=== PATIENT | male | born 1950 | race African-American/Black ===

== ENCOUNTER 2024-03-11 08:49 | Inpatient (IN) | payer OTHER ==
[2024-03-11 10:07] LABS: BASO % 0.8 % (0-2.0); EOS % 0.9 % (0-4.5); HEMATOCRIT 44.7 % (35.4-49); HEMOGLOBIN 15.2 GM/dL (11.7-16.9); LYMPH % 14.8 % (8-40); MCHC 34.1 g/dl (32.0-35.9); MEAN CELL VOLUME 99.6 fl (80-96); MEAN PLT VOLUME 8.5 fl (7.5-11.1); MONO % 10.5 % (3.8-10.2); PLATELET COUNT 126 10^3/uL (134-434); RBC 4.48 M/mm3 (4.00-5.60); RDW 14.6 % (11.9-15.9); WHITE BLOOD COUNT 5.6 K/mm3 (4.0-10.0)
[2024-03-11 10:43] LABS: INR 1.02 (0.83-1.09); PROTHROMBIN TIME (PATIENT) 11.7 SEC (9.7-13.0)
[2024-03-11 10:44] LABS: ACTIVATED PTT 33.7 SECONDS (25.2-36.5)
[2024-03-11 10:57] LABS: LACTIC ACID 2.4 mmol/L (0.4-2.0); POTASSIUM 4.5 mmol/L (3.5-5.1)
[2024-03-11 11:00] LABS: ALBUMIN 3.3 g/dl (3.4-5.0); CALCIUM 9.5 mg/dL (8.5-10.1); MAGNESIUM 2.2 mg/dL (1.8-2.4)
[2024-03-11 11:02] LABS: BLOOD UREA NITROGEN 10.2 mg/dL (7-18)
[2024-03-11 11:03] LABS: CREATININE 0.7 mg/dL (0.55-1.3)
[2024-03-11 11:05] LABS: BILIRUBIN,TOTAL 3.5 mg/dL (0.2-1); TOT PROT 7.4 g/dl (6.4-8.2)
[2024-03-11] MEDS: SODIUM CHLORIDE 1,000 ML IV STA (11:40)
[2024-03-11] MEDS ORDERED: LORazepam 1 MG TABLET PO PRN (13:29)
[2024-03-11 14:12] LABS: POTASSIUM 4.2 mmol/L (3.5-5.1)
[2024-03-11 14:13] LABS: CALCIUM 8.6 mg/dL (8.5-10.1)
[2024-03-11 14:14] LABS: ALBUMIN 3.2 g/dl (3.4-5.0); BLOOD UREA NITROGEN 9.8 mg/dL (7-18)
[2024-03-11 14:17] LABS: CREATININE 0.6 mg/dL (0.55-1.3)
[2024-03-11 14:18] LABS: BILIRUBIN,TOTAL 3.4 mg/dL (0.2-1)
[2024-03-11 14:19] LABS: TOT PROT 6.5 g/dl (6.4-8.2)
[2024-03-11 14:25] VITALS: BMI 21.1
[2024-03-11] MEDS ORDERED: ALBUTEROL SO4 0.083% IH SOL 2.5 MG/3 ML VIAL.NEB. NEB PRN (17:13)
[2024-03-11 17:21] LABS: BILIRUBIN,DIRECT 1.1 mg/dL (0.0-0.2)
[2024-03-11] MEDS ORDERED: ALBUTEROL SO4 HFA INHALER IH PRN (17:46)
[2024-03-11] MEDS: KETOROLAC TROMETHAMINE 30 MG/1 ML VIAL IVPUSH ONE (18:51)
[2024-03-11] MEDS: traZODone HCL 100 MG TABLET (FP) PO SCH (21:34)
[2024-03-11] MEDS: BUDESONIDE/FORMETEROL FUMARATE 80/4.5 mcg INHALER IH SCH (21:34)
[2024-03-11] MEDS ORDERED: PATIENT'S OWN MEDICATION (NON-FORMULARY) (Fluticasone Propion/Salmeterol [Advair 250-50 Di IH SCH (22:00)
[2024-03-12 09:02] LABS: BASO % 0.4 % (0-2.0); EOS % 0.2 % (0-4.5); HEMATOCRIT 44.5 % (35.4-49); HEMOGLOBIN 14.9 GM/dL (11.7-16.9); LYMPH % 8.8 % (8-40); MCH 33.7 pg (25.7-33.7); MCHC 33.5 g/dl (32.0-35.9); MEAN CELL VOLUME 100.5 fl (80-96); MEAN PLT VOLUME 8.4 fl (7.5-11.1); MONO % 7.1 % (3.8-10.2); NEUT % 83.5 % (42.8-82.8); PLATELET COUNT 132 10^3/uL (134-434); RBC 4.42 M/mm3 (4.00-5.60); WHITE BLOOD COUNT 7.4 K/mm3 (4.0-10.0)
[2024-03-12 09:09] LABS: INR 1.08 (0.83-1.09); PROTHROMBIN TIME (PATIENT) 12.2 SEC (9.7-13.0)
[2024-03-12 09:39] LABS: POTASSIUM 4.5 mmol/L (3.5-5.1)
[2024-03-12 09:44] LABS: ALBUMIN 3.4 g/dl (3.4-5.0)
[2024-03-12 09:45] LABS: BLOOD UREA NITROGEN 13.5 mg/dL (7-18)
[2024-03-12 09:48] LABS: CREATININE 0.7 mg/dL (0.55-1.3); PHOSPHOROUS 2.7 mg/dL (2.5-4.9)
[2024-03-12 09:49] LABS: TOT PROT 6.9 g/dl (6.4-8.2)
[2024-03-12] MEDS: FOLIC ACID 1 MG TABLET (FP) PO SCH (09:55)
[2024-03-12] MEDS: ENOXAPARIN NA (PORCINE) 40 MG/0.4 ML DISP.SYRIN SQ SCH (09:55)
[2024-03-12] MEDS: THIAMINE 100 MG TABLET PO SCH (09:55)
[2024-03-12] MEDS ORDERED: LORazepam 2 MG TABLET PO PRN (11:07)
[2024-03-12] MEDS ORDERED: LORazepam 1 MG TABLET PO PRN (11:12)
[2024-03-12] MEDS: KETOROLAC TROMETHAMINE 15 MG/ML VIAL IVPUSH ONE (11:48)
[2024-03-12] MEDS: IBUPROFEN 400 MG TABLET (FP) PO PRN (21:43)
[2024-03-13 08:08] LABS: CARCINOEMBRYONIC ANTIGEN 5.2 ng/mL (0.0-4.7)
[2024-03-13 08:14] LABS: BASO % 0.3 % (0-2.0); EOS % 0.3 % (0-4.5); HEMATOCRIT 43.4 % (35.4-49); HEMOGLOBIN 14.8 GM/dL (11.7-16.9); MCH 34.1 pg (25.7-33.7); MEAN CELL VOLUME 100.2 fl (80-96); MEAN PLT VOLUME 8.5 fl (7.5-11.1); MONO % 10.5 % (3.8-10.2); NEUT % 77.9 % (42.8-82.8); PLATELET COUNT 151 10^3/uL (134-434); RBC 4.33 M/mm3 (4.00-5.60); RDW 14.7 % (11.9-15.9); WHITE BLOOD COUNT 8.2 K/mm3 (4.0-10.0)
[2024-03-13 08:24] LABS: POTASSIUM 4.2 mmol/L (3.5-5.1)
[2024-03-13 08:32] LABS: ALBUMIN 3.2 g/dl (3.4-5.0); BLOOD UREA NITROGEN 16.3 mg/dL (7-18); CALCIUM 8.6 mg/dL (8.5-10.1); MAGNESIUM 2.1 mg/dL (1.8-2.4)
[2024-03-13 08:36] LABS: CREATININE 0.7 mg/dL (0.55-1.3); PHOSPHOROUS 2.2 mg/dL (2.5-4.9)
[2024-03-13 08:37] LABS: BILIRUBIN,TOTAL 3.4 mg/dL (0.2-1); TOT PROT 6.8 g/dl (6.4-8.2)
[2024-03-13] MEDS: ADVAIR IH SCH (13:39)
[2024-03-14] MEDS: LOPERAMIDE HCL 2 MG CAPSULE PO PRN (10:22)
[2024-03-14 12:13] LABS: BF WBC & OTHER NUCLEATED CELLS 238 /mm3
[2024-03-14 12:14] LABS: BODY FLUID MACROPHAGES 25 %; BODY FLUID MESOTHELIAL 5 %
[2024-03-14] MEDS: IBUPROFEN 400 MG TABLET (FP) PO ONE (21:30)
[2024-03-15] MEDS: SPIRONOLACTONE 25 MG TABLET PO SCH (09:07)
[2024-03-15] MEDS: FUROSEMIDE 40 MG TABLET (FP) PO SCH (09:09)
[2024-03-15 10:23] LABS: BASO % 0.4 % (0-2.0); HEMATOCRIT 45.5 % (35.4-49); HEMOGLOBIN 15.2 GM/dL (11.7-16.9); LYMPH % 14.7 % (8-40); MCH 33.7 pg (25.7-33.7); MCHC 33.4 g/dl (32.0-35.9); MEAN CELL VOLUME 101.1 fl (80-96); MONO % 9.7 % (3.8-10.2); NEUT % 74.2 % (42.8-82.8); PLATELET COUNT 159 10^3/uL (134-434); RDW 14.2 % (11.9-15.9); WHITE BLOOD COUNT 7.7 K/mm3 (4.0-10.0)
[2024-03-15 10:58] LABS: POTASSIUM 3.9 mmol/L (3.5-5.1)
[2024-03-15 11:09] LABS: ALBUMIN 3.2 g/dl (3.4-5.0); BLOOD UREA NITROGEN 16.5 mg/dL (7-18); CALCIUM 8.7 mg/dL (8.5-10.1)
[2024-03-15 11:13] LABS: CREATININE 0.6 mg/dL (0.55-1.3)
[2024-03-15 11:14] LABS: BILIRUBIN,TOTAL 3.1 mg/dL (0.2-1); TOT PROT 6.6 g/dl (6.4-8.2)
[2024-03-15 14:03] VITALS: BP 112/70; PULSE 78; RESP 20; TEMP 98.1
[2024-03-15 16:11] LABS: BODY FLUID ALBUMIN 0.5 g/dL (Not Estab.)
[2024-03-16 05:10] LABS: STOOL CHLORIDE 74 mmol/L (.); STOOL POTASSIUM 13 mmol/L (.); STOOL SODIUM 130 mmol/L (.)
== END 2024-03-15 15:13 | disposition home or self-care (01) | DRG 436 ==
LOC: JER 08:49 → JERBED 11:19 → UNDOADMOB 11:19 → INTOOBSV 11:19 → JERBED 14:10 → J7W 14:26 → OBSVTOIN 03-14 11:21
PROVIDERS: ADMIT Student in an Organized Health Care Education/Training Program; ATTEND Nurse Practitioner Family
PROC: 0W9G3ZX Drainage of Peritoneal Cavity, Percutaneous Approach, Diagnostic (ICD-10-PCS; principal; 2024-03-14)
DX: C22.0 Liver cell carcinoma (principal); F10.239 Alcohol dependence with withdrawal, unspecified; K70.31 Alcoholic cirrhosis of liver with ascites; D69.59 Other secondary thrombocytopenia; J44.9 Chronic obstructive pulmonary disease, unspecified; R19.7 Diarrhea, unspecified; K76.9 Liver disease, unspecified
CPT/HCPCS: 36415; 71250-TC; 74178-TC; 74183-TC; 76942-TC; 80053; 82042; 82105; 82140; 82150; 82248; 82378; 82438; 82465; 82710; 82945; 82977; 83605; 83615; 83690; 83735; 83986; 84100; 84157; 84302; 84478; 84999; 85025; 85610; 85730; 86301; 86705; 86709; 86803; 87045; 87046; 87324; 87340; 87449; 87517; 88108; 88305-TC; 93306-TC; 97116-GP; 97161-GP; 99285-25; G0378; Q9967

== ENCOUNTER 2024-03-26 19:49 | Inpatient (IN) | payer OTHER ==
[2024-03-26] MEDS: LACTATED RINGERS SOLUTION 1000 ML INFUS.BAG IV ONE (20:31)
[2024-03-26] MEDS ORDERED: PANTOPRAZOLE SODIUM 80 MG/200 ML BAG IVPB ONE (20:38)
[2024-03-26] MEDS ORDERED: OCTREOTIDE ACETATE 100 MCG/1 ML ONE (20:39)
[2024-03-26 20:40] LABS: BASO % 0.1 % (0-2.0); HEMATOCRIT 36.5 % (35.4-49); HEMOGLOBIN 12.1 GM/dL (11.7-16.9); LYMPH % 11.1 % (8-40); MCH 33.1 pg (25.7-33.7); MCHC 33.2 g/dl (32.0-35.9); MEAN CELL VOLUME 99.8 fl (80-96); MEAN PLT VOLUME 8.3 fl (7.5-11.1); MONO % 11.2 % (3.8-10.2); NEUT % 77.6 % (42.8-82.8); PLATELET COUNT 358 10^3/uL (134-434); RBC 3.66 M/mm3 (4.00-5.60); RDW 14.6 % (11.9-15.9)
[2024-03-26 20:51] LABS: INR 1.26 (0.83-1.09); PROTHROMBIN TIME (PATIENT) 14.1 SEC (9.7-13.0)
[2024-03-26 20:53] LABS: ACTIVATED PTT 28.5 SECONDS (25.2-36.5)
[2024-03-26] MEDS: PANTOPRAZOLE SODIUM 40 MG VIAL IVPUSH ONE (21:06)
[2024-03-26] MEDS ORDERED: LACTULOSE 20 GM/30 ML UDC (FOR ORAL USE ONLY) ONE (21:07)
[2024-03-26] MEDS: OCTREOTIDE ACETATE 50 MCG/1 ML - 1 ML VIAL IVPUSH ONE (21:07)
[2024-03-26 21:09] LABS: ALBUMIN 3.1 g/dl (3.4-5.0); CALCIUM 9.2 mg/dL (8.5-10.1); POTASSIUM 5.2 mmol/L (3.5-5.1)
[2024-03-26 21:11] LABS: MAGNESIUM 2.3 mg/dL (1.8-2.4)
[2024-03-26 21:13] LABS: CREATININE 1.1 mg/dL (0.55-1.3)
[2024-03-26 21:14] LABS: BILIRUBIN,TOTAL 2.1 mg/dL (0.2-1); TOT PROT 6.6 g/dl (6.4-8.2)
[2024-03-26 21:18] LABS: BLOOD UREA NITROGEN 45.8 mg/dL (7-18); N-TERMINAL BNP 183.8 pg/ml (5-450)
[2024-03-26 21:18] LABS: LACTIC ACID 5.3 mmol/L (0.4-2.0)
[2024-03-26] MEDS: LACTULOSE 20 GM/30 ML UDC (FOR ORAL USE ONLY) PO ONE (21:19)
[2024-03-26] MEDS: OCTREOTIDE ACETATE 200 MCG, OCTREOTIDE ACETATE 1,000 MCG in DEXTROSE 5%-WATER - 496 ML IVPB SCH (21:31)
[2024-03-26] MEDS: SODIUM ZIRCONIUM CYCLOSILICATE (LOKELMA) 5 GM PACKET PO ONE (21:42)
[2024-03-26] MEDS ORDERED: INSULIN REGULAR HUMAN 100 UNITS/ML *VIAL ONE (23:02)
[2024-03-26] MEDS ORDERED: DEXTROSE 50%-WATER 25 GM/50 ML DISP.SYRIN ONE (23:02)
[2024-03-26] MEDS: DEXTROSE 50%-WATER 25 GM/50 ML DISP.SYRIN IVPUSH ONE (23:26)
[2024-03-26] MEDS: INSULIN REGULAR HUMAN 100 UNITS/ML *VIAL IVPUSH ONE (23:26)
[2024-03-26 23:33] LABS: PH,URINE 5.5 (5.0-8.0); URINE APPEARANCE CLEAR; URINE BILIRUBIN NEGATIVE (NEGATIVE); URINE COLOR YELLOW; URINE GLUCOSE (UA) TRACE (NEGATIVE); URINE KETONE NEGATIVE (NEGATIVE); URINE LEUK ESTERASE NEGATIVE (NEGATIVE); URINE NITRITE NEGATIVE (NEGATIVE); URINE PROTEIN NEGATIVE (NEGATIVE); URINE UROBILINOGEN 0.2 mg/dL (0.2-1.0)
[2024-03-27 00:51] LABS: LACTIC ACID 5.1 mmol/L (0.4-2.0)
[2024-03-27] MEDS: SODIUM CHLORIDE 0.9% 500 ML INFUS.BAG IV ONE (01:36)
[2024-03-27 01:50] LABS: BASO % 0.3 % (0-2.0); EOS % 0.1 % (0-4.5); HEMATOCRIT 31.2 % (35.4-49); HEMOGLOBIN 10.3 GM/dL (11.7-16.9); LYMPH % 10.1 % (8-40); MCH 33.4 pg (25.7-33.7); MEAN CELL VOLUME 101.1 fl (80-96); MEAN PLT VOLUME 8.5 fl (7.5-11.1); MONO % 15.8 % (3.8-10.2); NEUT % 73.7 % (42.8-82.8); PLATELET COUNT 262 10^3/uL (134-434); RBC 3.08 M/mm3 (4.00-5.60); RDW 14.6 % (11.9-15.9); WHITE BLOOD COUNT 19.7 K/mm3 (4.0-10.0)
[2024-03-27] MEDS ORDERED: PIPERACILLIN/TAZOB 3.375 GM 3.375 GM/50 ML BAG IVPB ONE (02:43)
[2024-03-27] MEDS: PIPERACILLIN/TAZOB 3.375 GM 3.375 GM in DEXTROSE 5%-WATER - 50 ML IVPB ONE (02:49)
[2024-03-27 05:32] LABS: LACTIC ACID 3.3 mmol/L (0.4-2.0)
[2024-03-27] MEDS: LACTULOSE 20 GM/30 ML UDC (FOR ORAL USE ONLY) PO SCH (06:55)
[2024-03-27 07:21] LABS: BASO % 0.6 % (0-2.0); EOS % 0.2 % (0-4.5); HEMATOCRIT 31.7 % (35.4-49); HEMOGLOBIN 10.4 GM/dL (11.7-16.9); LYMPH % 13.6 % (8-40); MCH 33.7 pg (25.7-33.7); MCHC 32.9 g/dl (32.0-35.9); MEAN CELL VOLUME 102.4 fl (80-96); MEAN PLT VOLUME 8.6 fl (7.5-11.1); MONO % 11.2 % (3.8-10.2); NEUT % 74.4 % (42.8-82.8); PLATELET COUNT 235 10^3/uL (134-434); RDW 15.1 % (11.9-15.9); WHITE BLOOD COUNT 17.8 K/mm3 (4.0-10.0)
[2024-03-27 07:46] LABS: POTASSIUM 4.4 mmol/L (3.5-5.1)
[2024-03-27 07:48] LABS: CALCIUM 8.5 mg/dL (8.5-10.1)
[2024-03-27 07:49] LABS: ALBUMIN 2.7 g/dl (3.4-5.0); BLOOD UREA NITROGEN 38.8 mg/dL (7-18); MAGNESIUM 2.1 mg/dL (1.8-2.4)
[2024-03-27 07:52] LABS: CREATININE 0.9 mg/dL (0.55-1.3); PHOSPHOROUS 3.4 mg/dL (2.5-4.9)
[2024-03-27 07:53] LABS: TOT PROT 5.6 g/dl (6.4-8.2)
[2024-03-27] MEDS: SPIRONOLACTONE 25 MG TABLET PO SCH (11:42)
[2024-03-27] MEDS: FUROSEMIDE 40 MG TABLET (FP) PO SCH (11:42)
[2024-03-27] MEDS: FOLIC ACID 1 MG TABLET (FP) PO SCH (11:42)
[2024-03-27] MEDS: THIAMINE 100 MG TABLET PO SCH (11:42)
[2024-03-27] MEDS: PANTOPRAZOLE SODIUM 40 MG VIAL IVPUSH SCH (11:43)
[2024-03-27] MEDS: PIPERACILLIN/TAZOB 3.375 GM 3.375 GM in DEXTROSE 5%-WATER - 50 ML IVPB SCH ×2 (11:46→18:24)
[2024-03-27 13:16] LABS: HIV INTERPRETATION NEGATIVE (NEGATIVE)
[2024-03-27] MEDS: IBUPROFEN 800 MG/8 ML IJ IVPB ONE (14:51)
[2024-03-27] MEDS ORDERED: LACTULOSE 20 GM/30 ML UDC (FOR RECTAL USE ONLY) PR SCH (15:04)
[2024-03-27 15:45] LABS: HEMATOCRIT 30.5 % (35.4-49); MCH 33.4 pg (25.7-33.7); MCHC 32.9 g/dl (32.0-35.9); MEAN CELL VOLUME 101.7 fl (80-96); PLATELET COUNT 256 10^3/uL (134-434); RDW 14.9 % (11.9-15.9); WHITE BLOOD COUNT 15.7 K/mm3 (4.0-10.0)
[2024-03-27] MEDS: LACTULOSE 20 GM/30 ML UDC (FOR RECTAL USE ONLY) PR SCH (20:21)
[2024-03-27] MEDS: LACTATED RINGERS SOLUTION 1,000 ML/1,000 ML INFUS.BAG IV STA (21:33)
[2024-03-27 22:14] LABS: HEMATOCRIT 28.7 % (35.4-49); HEMOGLOBIN 9.5 GM/dL (11.7-16.9); MCH 33.5 pg (25.7-33.7); MEAN CELL VOLUME 101.6 fl (80-96); MEAN PLT VOLUME 8.1 fl (7.5-11.1); PLATELET COUNT 227 10^3/uL (134-434); RBC 2.83 M/mm3 (4.00-5.60); RDW 14.8 % (11.9-15.9); WHITE BLOOD COUNT 13.6 K/mm3 (4.0-10.0)
[2024-03-28] MEDS: LACTATED RINGERS SOLUTION 1,000 ML/1,000 ML INFUS.BAG IV SCH ×2 (00:58→09:10)
[2024-03-28 07:36] LABS: HEMATOCRIT 26.7 % (35.4-49); HEMOGLOBIN 8.8 GM/dL (11.7-16.9); MCH 33.9 pg (25.7-33.7); MCHC 33.1 g/dl (32.0-35.9); MEAN CELL VOLUME 102.4 fl (80-96); MEAN PLT VOLUME 8.1 fl (7.5-11.1); PLATELET COUNT 176 10^3/uL (134-434); RDW 14.3 % (11.9-15.9); WHITE BLOOD COUNT 10.3 K/mm3 (4.0-10.0)
[2024-03-28 08:02] LABS: POTASSIUM 3.8 mmol/L (3.5-5.1)
[2024-03-28 08:06] LABS: ALBUMIN 2.4 g/dl (3.4-5.0); BLOOD UREA NITROGEN 31.2 mg/dL (7-18); CALCIUM 8.1 mg/dL (8.5-10.1)
[2024-03-28 08:10] LABS: BILIRUBIN,TOTAL 2.1 mg/dL (0.2-1); CREATININE 0.9 mg/dL (0.55-1.3); TOT PROT 4.9 g/dl (6.4-8.2)
[2024-03-28] MEDS: PANTOPRAZOLE SODIUM 80 MG in SODIUM CHLORIDE 100 ML IVPB SCH (12:38)
[2024-03-28 12:48] LABS: BASO % 0.4 % (0-2.0); EOS % 1.3 % (0-4.5); HEMATOCRIT 28.9 % (35.4-49); HEMOGLOBIN 9.7 GM/dL (11.7-16.9); LYMPH % 20.7 % (8-40); MCH 33.8 pg (25.7-33.7); MCHC 33.5 g/dl (32.0-35.9); MEAN CELL VOLUME 100.9 fl (80-96); MEAN PLT VOLUME 8.1 fl (7.5-11.1); NEUT % 66.6 % (42.8-82.8); PLATELET COUNT 186 10^3/uL (134-434); RBC 2.87 M/mm3 (4.00-5.60); RDW 14.4 % (11.9-15.9); WHITE BLOOD COUNT 8.5 K/mm3 (4.0-10.0)
[2024-03-28 12:58] LABS: INR 1.24 (0.83-1.09); PROTHROMBIN TIME (PATIENT) 13.9 SEC (9.7-13.0)
[2024-03-28] MEDS: LACTULOSE 20 GM/30 ML UDC (FOR ORAL USE ONLY) PO SCH (13:16)
[2024-03-28] MEDS: PANTOPRAZOLE 40 MG TABLET PO SCH (21:15)
[2024-03-29 07:32] LABS: HEMATOCRIT 29.9 % (35.4-49); HEMOGLOBIN 10.1 GM/dL (11.7-16.9); MCH 34.5 pg (25.7-33.7); MCHC 33.7 g/dl (32.0-35.9); MEAN CELL VOLUME 102.5 fl (80-96); MEAN PLT VOLUME 8.3 fl (7.5-11.1); PLATELET COUNT 189 10^3/uL (134-434); RBC 2.92 M/mm3 (4.00-5.60); RDW 14.3 % (11.9-15.9); WHITE BLOOD COUNT 10.9 K/mm3 (4.0-10.0)
[2024-03-29 07:39] LABS: POTASSIUM 3.5 mmol/L (3.5-5.1)
[2024-03-29 07:42] LABS: CALCIUM 8.3 mg/dL (8.5-10.1)
[2024-03-29 07:43] LABS: ALBUMIN 2.8 g/dl (3.4-5.0); BLOOD UREA NITROGEN 30.4 mg/dL (7-18)
[2024-03-29 07:46] LABS: CREATININE 1.1 mg/dL (0.55-1.3)
[2024-03-29 07:47] LABS: BILIRUBIN,TOTAL 3.3 mg/dL (0.2-1)
[2024-03-29 07:48] LABS: TOT PROT 5.8 g/dl (6.4-8.2)
[2024-03-29 09:04] LABS: BILIRUBIN,DIRECT 1.2 mg/dL (0.0-0.2)
[2024-03-29] MEDS: RIFAXIMIN 550 MG TABLET PO SCH (11:15)
[2024-03-30 08:44] LABS: INR 1.23 (0.83-1.09); PROTHROMBIN TIME (PATIENT) 13.8 SEC (9.7-13.0)
[2024-03-30 09:02] LABS: HEMATOCRIT 28.2 % (35.4-49); HEMOGLOBIN 9.4 GM/dL (11.7-16.9); MCH 33.8 pg (25.7-33.7); MCHC 33.2 g/dl (32.0-35.9); MEAN CELL VOLUME 101.8 fl (80-96); MEAN PLT VOLUME 8.2 fl (7.5-11.1); PLATELET COUNT 157 10^3/uL (134-434); RBC 2.77 M/mm3 (4.00-5.60); RDW 14.5 % (11.9-15.9); WHITE BLOOD COUNT 6.8 K/mm3 (4.0-10.0)
[2024-03-30 09:14] LABS: POTASSIUM 3.8 mmol/L (3.5-5.1)
[2024-03-30 09:43] LABS: ALBUMIN 2.4 g/dl (3.4-5.0); BLOOD UREA NITROGEN 19.8 mg/dL (7-18)
[2024-03-30] MEDS: SPIRONOLACTONE 25 MG TABLET PO SCH (09:45)
[2024-03-30] MEDS: FUROSEMIDE 40 MG TABLET (FP) PO SCH (09:45)
[2024-03-30 09:47] LABS: CREATININE 0.7 mg/dL (0.55-1.3)
[2024-03-30 09:48] LABS: BILIRUBIN,TOTAL 2.2 mg/dL (0.2-1); TOT PROT 5.2 g/dl (6.4-8.2)
[2024-03-30] MEDS ORDERED: CEFTRIAXONE 1 GM in DEXTROSE 5%-WATER - 50 ML IVPB SCH (10:00)
[2024-03-31 06:17] VITALS: BP 113/71; PULSE 94; TEMP 97.7
[2024-03-31 07:58] VITALS: RESP 16
[2024-03-31 08:48] LABS: HEMATOCRIT 29.9 % (35.4-49); HEMOGLOBIN 10.2 GM/dL (11.7-16.9); MCH 33.9 pg (25.7-33.7); MCHC 34.2 g/dl (32.0-35.9); MEAN CELL VOLUME 99.3 fl (80-96); MEAN PLT VOLUME 8.6 fl (7.5-11.1); PLATELET COUNT 188 10^3/uL (134-434); RBC 3.01 M/mm3 (4.00-5.60); RDW 14.2 % (11.9-15.9); WHITE BLOOD COUNT 8.2 K/mm3 (4.0-10.0)
[2024-03-31 08:50] LABS: INR 1.17 (0.83-1.09); PROTHROMBIN TIME (PATIENT) 13.4 SEC (9.7-13.0)
[2024-03-31 09:12] LABS: POTASSIUM 3.8 mmol/L (3.5-5.1)
[2024-03-31 09:17] LABS: ALBUMIN 2.5 g/dl (3.4-5.0); CALCIUM 8.3 mg/dL (8.5-10.1)
[2024-03-31 09:18] LABS: BLOOD UREA NITROGEN 19.2 mg/dL (7-18)
[2024-03-31 09:20] LABS: CREATININE 0.8 mg/dL (0.55-1.3)
[2024-03-31 09:22] LABS: BILIRUBIN,TOTAL 1.7 mg/dL (0.2-1); TOT PROT 5.5 g/dl (6.4-8.2)
[2024-03-31 13:49] VITALS: BMI 18.6
== END 2024-03-31 11:02 | disposition home or self-care (01) | DRG 378 ==
LOC: JER 19:49 → JERBED 03-27 01:00 → J4W 03-27 05:24
PROVIDERS: ADMIT Internal Medicine; ATTEND Internal Medicine
PROC: 0DJ08ZZ Inspection of Upper Intestinal Tract, Via Natural or Artificial Opening Endoscopic (ICD-10-PCS; principal; 2024-03-28 13:45)
DX: K92.2 Gastrointestinal hemorrhage, unspecified (principal); C22.0 Liver cell carcinoma; E72.20 Disorder of urea cycle metabolism, unspecified; K76.6 Portal hypertension; E87.20 Acidosis, unspecified; K76.82 Hepatic encephalopathy; K74.60 Unspecified cirrhosis of liver; F10.20 Alcohol dependence, uncomplicated; K31.9 Disease of stomach and duodenum, unspecified; D64.9 Anemia, unspecified; J44.9 Chronic obstructive pulmonary disease, unspecified; E87.5 Hyperkalemia; D72.829 Elevated white blood cell count, unspecified; K29.60 Other gastritis without bleeding; K31.89 Other diseases of stomach and duodenum
CPT/HCPCS: 36415; 70450-TC; 71045-TC-FY; 74177-TC; 80053; 81003; 82140; 82248; 82272; 82962; 83605; 83735; 83880; 84100; 84484; 85025; 85027; 85610; 85730; 86140; 86704; 86850; 86900; 86901; 87040; 87086; 87340; 87389; 87517; 87522; 93005; 93010; 97116-GP; 97162-GP; 99285-25